=== PATIENT | female | born 1955 | race Caucasian/White ===

== ENCOUNTER → 2016-12-02 | Outpatient (CLI) | payer BC ==
--- NOTE | 2016-12-02 14:42 | MM ---
Reason for exam: additional evaluation requested from abnormal screening. Last mammogram was performed 1 year ago. History: Patient is postmenopausal and has history of breast cancer at age 44. Family history of breast cancer in mother at age 53 and breast cancer in maternal aunt at age 50. Silicone gel implant in the left breast, 2000. Breast lift of the right breast, 2000. Mastectomy of the left breast, 1999. Chemotherapy, 1999. Core biopsy of the right breast, June 01, 1998. Benign stereotactic core biopsy of the right breast, June 01, 1998. Took tamoxifen for 5 years beginning at age 44. Physical Findings: Nurse did not find any significant physical abnormalities on exam. MG Diagnostic Mammo RT w CAD CC, MLO, and ML view(s) were taken of the right breast. Prior study comparison: December 01, 2015, right breast MG 3d diag mammo w/cad RT. May 17, 2015, right breast MG 3d diag mammo w/cad RT. There are scattered fibroglandular densities. Previous mammotome biopsy within the right breast x 2. No significant new findings when compared with previous films. These results were verbally communicated with the patient and result sheet given to the patient on 12/02/16. ASSESSMENT: Benign, BI-RAD 2 RECOMMENDATION: Routine screening mammogram of both breasts in 1 year.
--- NOTE | 2016-12-02 14:43 | USB ---
Reason for exam: additional evaluation requested from abnormal screening. History: Patient is postmenopausal and has history of breast cancer at age 44. Family history of breast cancer in mother at age 53 and breast cancer in maternal aunt at age 50. Silicone gel implant in the left breast, 2000. Breast lift of the right breast, 2000. Mastectomy of the left breast, 1999. Chemotherapy, 1999. Core biopsy of the right breast, June 01, 1998. Benign stereotactic core biopsy of the right breast, June 01, 1998. Took tamoxifen for 5 years beginning at age 44. Physical Findings: Nurse did not find any significant physical abnormalities on exam. US Breast LT Left breast ultrasound is negative. These results were verbally communicated with the patient and result sheet given to the patient on 12/02/16. ASSESSMENT: Negative, BI-RAD 1 RECOMMENDATION: Routine screening mammogram of both breasts in 1 year.
== END ==
LOC: RADMAMWWP 13:18
PROVIDERS: ATTEND Family Medicine
DX: Z85.3 Personal history of malignant neoplasm of breast (principal); Z98.82 Breast implant status
CPT/HCPCS: 76641; G0206

== ENCOUNTER → 2018-01-26 | Outpatient (CLI) | payer BC ==
--- NOTE | 2018-01-28 09:11 | MM ---
Reason for exam: screening (asymptomatic). Last mammogram was performed 1 year and 2 months ago. History: Patient is postmenopausal and has history of breast cancer at age 44. Family history of breast cancer in mother at age 53 and breast cancer in maternal aunt at age 50. Silicone gel implant in the left breast, 2000. Breast lift of the right breast, 2000. Mastectomy of the left breast, 1999. Chemotherapy, 1999. Core biopsy of the right breast, June 01, 1998. Benign stereotactic core biopsy of the right breast, June 01, 1998. Took tamoxifen for 5 years beginning at age 44. Physical Findings: A clinical breast exam by your physician is recommended on an annual basis and results should be correlated with mammographic findings. MG Screen [place] Unilateral W/Cad Bilateral CC and MLO view(s) were taken. Prior study comparison: December 02, 2016, right breast MG diagnostic mammo RT w CAD. December 01, 2015, right breast MG 3d diag mammo w/cad RT. There are scattered fibroglandular densities. Previous mammotome biopsy in the right breast x 2. Post mammoplasty changes. ASSESSMENT: Negative, BI-RAD 1 RECOMMENDATION: Routine screening mammogram of the right breast in 1 year.
== END | disposition home or self-care (01) ==
LOC: RADMAMWWP 14:24
PROVIDERS: ATTEND Family Medicine
DX: Z12.31 Encounter for screening mammogram for malignant neoplasm of breast (principal)
CPT/HCPCS: 77067

== ENCOUNTER → 2019-04-01 | Outpatient (CLI) | payer BC ==
--- NOTE | 2019-04-05 10:34 | MM ---
Reason for exam: screening (asymptomatic). Last mammogram was performed 1 year and 2 months ago. History: Patient is postmenopausal and has history of breast cancer at age 44. Family history of breast cancer in mother at age 53 and breast cancer in maternal aunt at age 50. Silicone gel implant in the left breast, 2000. Breast lift of the right breast, 2000. Mastectomy of the left breast, 1999. Chemotherapy, 1999. Core biopsy of the right breast, June 01, 1998. Benign stereotactic core biopsy of the right breast, June 01, 1998. Took hormonal contraceptives for 4 years. Took tamoxifen for 5 years beginning at age 44. Physical Findings: A clinical breast exam by your physician is recommended on an annual basis and results should be correlated with mammographic findings. MG 3D Scr [place] Unilateral W/Cad CC and MLO view(s) were taken of the right breast. Prior study comparison: January 26, 2018, bilateral MG screen [place] unilateral w/cad. December 02, 2016, right breast MG diagnostic mammo RT w CAD. There are scattered fibroglandular densities. Previous mammotome biopsy in the right breast x 2. No significant changes when compared with prior studies. ASSESSMENT: Benign, BI-RAD 2 RECOMMENDATION: Routine screening mammogram of the right breast in 1 year.
== END | disposition home or self-care (01) ==
LOC: RADMAMWWP 15:08
PROVIDERS: ATTEND Family Medicine
DX: Z12.31 Encounter for screening mammogram for malignant neoplasm of breast (principal)
CPT/HCPCS: 77067

== ENCOUNTER → 2020-06-22 | Outpatient (CLI) | payer BC ==
--- NOTE | 2020-06-26 11:37 | MM ---
Reason for exam: screening (asymptomatic). Last mammogram was performed 1 year and 3 months ago. History: Patient is postmenopausal and has history of breast cancer at age 44. Family history of breast cancer in mother at age 53 and breast cancer in maternal aunt at age 50. Silicone gel implant in the left breast, 2000. Breast lift of the right breast, 2000. Mastectomy of the left breast, 1999. Chemotherapy, 1999. Core biopsy of the right breast, June 01, 1998. Benign stereotactic core biopsy of the right breast, June 01, 1998. Took hormonal contraceptives for 4 years. Took tamoxifen for 5 years beginning at age 44. Physical Findings: A clinical breast exam by your physician is recommended on an annual basis and results should be correlated with mammographic findings. MG 3D Scr [place] Unilateral W/Cad CC and MLO view(s) were taken of the right breast. Prior study comparison: April 01, 2019, bilateral MG 3d scr [place] unilateral w/cad. January 26, 2018, bilateral MG screen [place] unilateral w/cad. The breast tissue is heterogeneously dense. This may lower the sensitivity of mammography. Previous mammotome biopsy in the right breast x 2. No significant changes when compared with prior studies. ASSESSMENT: Negative, BI-RAD 1 RECOMMENDATION: Routine screening mammogram of the right breast in 1 year.
== END | disposition home or self-care (01) ==
LOC: RADMAMWWP 14:47
PROVIDERS: ATTEND Family Medicine
DX: Z12.31 Encounter for screening mammogram for malignant neoplasm of breast (principal); Z85.3 Personal history of malignant neoplasm of breast; Z98.82 Breast implant status
CPT/HCPCS: 77067

== ENCOUNTER → 2021-09-27 | Outpatient (CLI) | payer MEDICARE, BC ==
--- NOTE | 2021-10-02 12:13 | MM ---
Reason for exam: screening (asymptomatic). Last mammogram was performed 1 year and 3 months ago. History: Patient is postmenopausal and has history of breast cancer at age 44. Family history of breast cancer in mother at age 53 and breast cancer in maternal aunt at age 50. Silicone gel implant in the left breast, 2000. Breast lift of the right breast, 2000. Mastectomy of the left breast, 1999. Chemotherapy, 1999. Core biopsy of the right breast, June 01, 1998. Benign stereotactic core biopsy of the right breast, June 01, 1998. Took hormonal contraceptives for 4 years. Took tamoxifen for 5 years beginning at age 44. Physical Findings: A clinical breast exam by your physician is recommended on an annual basis and results should be correlated with mammographic findings. MG 3D Scr [place] Unilateral W/Cad CC and MLO view(s) were taken of the right breast. Prior study comparison: June 22, 2020, bilateral MG 3d scr [place] unilateral w/cad. April 01, 2019, bilateral MG 3d scr [place] unilateral w/cad. There are scattered fibroglandular densities. Previous mammotome biopsy in the right breast x 2. No significant changes when compared with prior studies. ASSESSMENT: Negative, BI-RAD 1 RECOMMENDATION: Routine screening mammogram of the right breast in 1 year.
== END | disposition home or self-care (01) ==
LOC: RADMAMWWP 13:37
PROVIDERS: ATTEND Family Medicine
DX: Z12.31 Encounter for screening mammogram for malignant neoplasm of breast (principal); Z85.3 Personal history of malignant neoplasm of breast; Z78.0 Asymptomatic menopausal state; Z80.3 Family history of malignant neoplasm of breast
CPT/HCPCS: 77067

== ENCOUNTER → 2022-09-26 | Outpatient (CLI) | payer MEDICARE, BC ==
--- NOTE | 2022-09-27 07:00 | MR ---
EXAMINATION TYPE: MR brain wo/w [facility] wo DATE OF EXAM: 09/26/2022 COMPARISON: None. HISTORY: Head and neck pain S/P fall. TECHNIQUE: Multiplanar, multisequence images of the brain and brainstem and cervical spine are all performed wit hout and with IV contrast, utilizing 8 mL intravenous Gadavist . FINDINGS: BRAIN: Diffusion weighted images demonstrate no evidence of a recent infarct or other diffusion abnormality. The ventricular system and cisternal spaces are normal in size and appearance. The brain volume is age appropriate. Occasional scattered focus of T2 hyperintensity is seen throughout the white matter bilaterally. Approximately 8-10 scattered small lesions are seen. Lesions are nonspecific in appearan ce and distribution. T2 Star weighted images show no suspicious intraparenchymal blood products. Midline structures demonstrate normal morphology. The craniocervical junction appears within normal limits. Post contrast images demonstrate no abnormal enhancement. The dural venous sinuses appear pa tent. The visualized sinuses are clear and the globes are intact. IMPRESSION: Mild to minimal nonspecific white matter changes favor product of chronic small vessel is chemic change in patient of this age. No suspicious blood product to suggest GERBER. C-SPINE: FINDINGS: Coronal images show levoconvex scoliosis centered in the upper thoracic spine. Sagittal liza ges of the cervical spine show the craniocervical junction to appear within normal limits. The cervi faith and upper thoracic spinal cord is normal in caliber and signal. There is slight grade 1 retrolist hesis of C3 on C4 and C4 on C5 along with C5 on C6. Mild disc space narrowing at C5-C6 and C6-C7 leve ls. Vertebral body heights are maintained. The bone marrow signal intensity is within normal limits. Axial images show C2-C3 level to appear within normal limits. Axial images at C3-C4 level show spondylolisthesis with right paracentral spur disc complex minimally effacing anterior thecal sac and causing mild right-sided neural foraminal narrowing. Axial images at C4-C5 level shows broad-based right paracentral disc protrusion mildly effacing anter ior thecal sac, patent bilateral neural foramina. Axial images at C5-C6 level show spondylolisthesis and posterior spur disc complex mildly effacing th e anterior thecal sac and causing mild to moderate left greater than right bilateral neural foraminal narrowing. Axial images at C6-C7 levels show spur disc complex mildly effaces the anterior thecal sac and causin g mild left-sided neural foraminal narrowing. Axial images at C7-T1 level appear within normal limits. IMPRESSION: Multilevel spondylolisthesis and degenerative change in the cervical spine as detailed ab ove.
== END | disposition home or self-care (01) ==
LOC: RADMRIMAIN 11:29
PROVIDERS: ATTEND Psychiatry & Neurology Neurology
DX: M43.12 Spondylolisthesis, cervical region (principal); M47.812 Spondylosis without myelopathy or radiculopathy, cervical region; M50.221 Other cervical disc displacement at C4-C5 level; M99.71 Connective tissue and disc stenosis of intervertebral foramina of cervical region; G93.89 Other specified disorders of brain; R51.9 Headache, unspecified
CPT/HCPCS: 70553; 72141; A9585

== ENCOUNTER → 2022-10-15 | Outpatient (CLI) | payer MEDICARE, BC ==
--- NOTE | 2022-10-16 07:20 | MM ---
Reason for Exam: Screening (asymptomatic). Last mammogram was performed 1 year(s) and 1 month(s) ago. Patient History: Menarche at age 13. First Full-Term at age 25. Postmenopausal. Patient has history of breast feeding. Breast cancer, left, age 44. Previous chemotherapy at age 44. Patient used Hormonal Contraceptives for 4 years. Tamoxifen for 5 years from age 44 until age 49. 1999, Mastectomy on the Left side. 06/01/1998, Core Biopsy on the Right side. 06/01/1998, Benign Stereotactic Core Biopsy on the right side. 1999, Chemotherapy. 2000, Implant on the left side. Maternal aunt had breast cancer, age 50. Mother had breast cancer, age 53. Prior Study Comparison: 04/01/2019 Bilateral Screening Mammogram, [facility]. 06/22/2020 Bilateral Screening Mammogram, [facility]. 09/27/2021 Bilateral Screening Mammogram, [facility]. Tissue Density: Right: There are scattered fibroglandular densities. Findings: There are 2 biopsy clips in the right breast redemonstrated. There are grouped benign-appearing punctate calcifications in the subareolar region of the right breast upper outer aspect redemonstrated. Benign-appearing right axillary lymph nodes are incidentally noted. There is no suspicious new group of microcalcifications or new suspicious mass in the right breast. Overall Assessment: Benign, BI-RAD 2 Management: Screening Mammogram of the right breast in 1 year. A clinical breast exam by your physician is recommended on an annual basis and results should be correlated with mammographic findings. Electronically signed and approved by: Wang Borges M.D.
== END | disposition home or self-care (01) ==
LOC: RADMAMWWP 16:07
PROVIDERS: ATTEND Family Medicine
DX: Z12.31 Encounter for screening mammogram for malignant neoplasm of breast (principal); Z78.0 Asymptomatic menopausal state; Z80.3 Family history of malignant neoplasm of breast; Z85.3 Personal history of malignant neoplasm of breast; Z98.82 Breast implant status; Z90.12 Acquired absence of left breast and nipple; Z92.21 Personal history of antineoplastic chemotherapy
CPT/HCPCS: 77067

== ENCOUNTER → 2023-10-17 | Outpatient (CLI) | payer MEDICARE, BC ==
--- NOTE | 2023-10-17 13:09 | MM ---
Reason for Exam: Additional evaluation requested from prior study. Last screening mammogram was performed 12 month(s) ago. Patient History: Menarche at age 13. First Full-Term at age 25. Postmenopausal. Patient has history of breast feeding. Breast cancer, left, age 44. Previous chemotherapy at age 44. Patient used Hormonal Contraceptives for 4 years. Tamoxifen for 5 years from age 44 until age 49. 1999, Mastectomy on the Left side. 06/01/1998, Core Biopsy on the Right side. 06/01/1998, Benign Stereotactic Core Biopsy on the right side. 1999, Chemotherapy. 2000, Implant on the left side. Maternal aunt had breast cancer, age 50. Mother had breast cancer, age 53. Prior Study Comparison: 06/22/2020 Bilateral Screening Mammogram, [facility]. 09/27/2021 Bilateral Screening Mammogram, [facility]. 10/15/2022 Right MG 3D scr lorenzo unilateral w/cad., [facility]. Tissue Density: Right: The breasts are heterogeneously dense, which may obscure small masses. Findings: Analyzed By CAD. There is been previous left-sided mastectomy. Benign calculations right breast. No evidence for mass or distortion. Overall Assessment: Incomplete: need additional imaging evaluation, BI-RAD 0 Management: Diagnostic Breast Ultrasound of the left breast. . Results were given to the patient verbally at the time of exam. Patient should continue monthly self-breast exams. A clinical breast exam by your physician is recommended on an annual basis. This exam should not preclude additional follow-up of suspicious palpable abnormalities. Note on Tangela scores and lifetime risk: 1. A Tangela score greater than 3% is considered moderate risk. If this is the case, consider specialist referral to assess eligibility for a risk reducing agent. 2. If overall lifetime risk for the development of breast cancer is 20% or higher, the patient may qualify for future screening with alternating mammogram and breast MRI. Electronically signed and approved by: Fuentes Devine M.D. Radiologis
--- NOTE | 2023-10-17 13:55 | USB ---
Reason for Exam: Clinical finding. Patient History: Menarche at age 13. First Full-Term at age 25. Postmenopausal. Patient has history of breast feeding. Breast cancer, left, age 44. Previous chemotherapy at age 44. Patient used Hormonal Contraceptives for 4 years. Tamoxifen for 5 years from age 44 until age 49. 1999, Mastectomy on the Left side. 06/01/1998, Core Biopsy on the Right side. 06/01/1998, Benign Stereotactic Core Biopsy on the right side. 1999, Chemotherapy. 2000, Implant on the left side. Maternal aunt had breast cancer, age 50. Mother had breast cancer, age 53. Technique: Method: Whole Breast Handheld. Doppler: Color. Patient Position: Supine. Prior Study Comparison: 12/02/2016 Left Diagnostic Ultrasound, [facility]. 06/22/2020 Bilateral Screening Mammogram, [facility]. 09/27/2021 Bilateral Screening Mammogram, [facility]. 10/15/2022 Right MG 3D scr lorenzo unilateral w/cad., [facility]. Findings: The whole breast of the left breast, the axilla of the left breast and the retroareolar of the left breast were scanned. Mastectomy changes left breast with implant noted in place unchanged from 2017. There is a thick cortex lymph nodes seen within the left axilla with cortex measuring up to 7 mm. Tissue diagnosis is recommended. Overall Assessment: Suspicious, BI-RAD 4 Management: Ultrasound Core Biopsy of the left breast. A clinical breast exam by your physician is recommended on an annual basis and results should be correlated with mammographic findings. This exam should not preclude additional follow-up of suspicious palpable abnormalities. Results were given to the patient verbally at the time of exam. Electronically signed and approved by: Fuentes Devine M.D. Radiologis
== END | disposition home or self-care (01) ==
LOC: RADMAMWWP 12:44
PROVIDERS: ATTEND Family Medicine
DX: R92.8 Other abnormal and inconclusive findings on diagnostic imaging of breast (principal); Z78.0 Asymptomatic menopausal state; Z80.3 Family history of malignant neoplasm of breast
CPT/HCPCS: 77065; 76641; G0279; 77061

== ENCOUNTER → 2023-10-30 | Day surgery (SDC) | payer MEDICARE, BC ==
--- NOTE | 2023-11-10 08:35 | USB ---
Prior Study Comparison: 09/27/2021 Bilateral Screening Mammogram, [facility]. 10/15/2022 Right MG 3D scr lorenzo unilateral w/cad., [facility]. 10/17/2023 Right MG 3D diag mammo w/cad RT, [facility]. Pathology Description: Location: axilla. Marker Left Behind. Needle Type: Bard 14g x 10cm Cores: 2 Skin Nicks: 1 Gauge: 14 The procedure of ultrasound guided core biopsy was explained to the patient. Benefits, alternatives, and risks were discussed. An informed consent was then obtained. A time out was performed. The patient was placed in supine positioning for imaging and for the procedure. The overlying skin was prepped and draped in usual sterile fashion. 3 ml 1% lidocaine into the skin followed by 8 mL 1% lidocaine/epinephrine mixture was used as anesthetic into subcutaneous tissue up to area of concern in the left axilla. The thickened left axillary node is targeted. A ame was made with surgical scalpel. Under ultrasound guidance, an 18-gauge Bard biopsy device was used to obtain 2 core samples. Following this, a butterfly biopsy clip was left in the lymph node. No postprocedure mammogram given patient's left mastectomy and axillary positioning of the biopsied lymph node. The patient tolerated the procedure well without any immediate complication. The patient was discharged home in stable condition. IMPRESSION: Successful, uncomplicated ultrasound guided core biopsy of thickened left axillary lymph node in a patient with previous left mastectomy. PATHOLOGY STATUS: Results pending. Pathology Results: Result: Malignant, Lymphoma. Pathology and radiology were reviewed. Findings are concordant. 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 Negative for metastatic malignancy. See note. Notes Sections examined show core biopsy fragments of lymph node tissue, with rare identifiable follicles. There is a notable population of somewhat mature, monotonous and atypical lymphocytes identified. No metastatic malignancy is present. A panel of immunostains performed on block A1 and evaluated with appropriate positive controls shows the atypical lymphocyte population to be immunohistochemically positive for BCL2, CD20, CD79a, CD43, and PAX5. The atypical lymphocyte population is immunohistochemically negative for the following markers: BCL-1, BCL-6, CD3, CD5, CD10, and CD23. CD23 highlights cells within preserved follicular dendritic cell meshworks. [place] and Lambda immunostains show evidence of [place] restriction among the atypical lymphocyte population. Ki-67 immunostain demonstrates a proliferative index of approximately 11-20% among the atypical lymphocyte population. 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 [employer] material from this case was also reviewed by Dr. Dilia Su, a hematopathologist at [facility], who agrees with the above diagnosis. Overall Assessment: Malignant Management: Surgical Consultation of the left breast. Electronically signed and approved by: Rosanna Barr M.D. Radiologist
== END ==
LOC: RADUSWWP 12:36
PROVIDERS: ATTEND Family Medicine
DX: Z53.8 Procedure and treatment not carried out for other reasons (principal); R92.8 Other abnormal and inconclusive findings on diagnostic imaging of breast
CPT/HCPCS: 88305; 88342; 88341; A4648

== ENCOUNTER → 2023-12-13 | Outpatient (CLI) | payer MEDICARE, BC ==
--- NOTE | 2023-12-14 06:33 | PE ---
EXAMINATION TYPE: PET CT fusion skull to thigh DATE OF EXAM: 12/13/2023 COMPARISON: NONE HISTORY: Left breast cancer 2000 with non-Hodgkin lymphoma recently diagnosed in November. TECHNIQUE: Following the intravenous administration of 12.17 mCi of F-18 FDG, whole body images are performed from the skull base to the midthigh. Images are reviewed on the computer in the coronal, a xial, and sagittal planes. Reconstructed rotating images are created on independent workstation and reviewed on the computer. A localization and attenuation correction CT is performed in conjunction with the PET scan. Blood glucose level was 90 SCAN: Initial Scan FINDINGS: Mean SUV liver: 2.62 Mean SUV mediastinum: 1.09 SKULL BASE AND NECK: No areas of suspicious abnormal hypermetabolic uptake CHEST, MEDIASTINUM, AND HILAR REGION: Surgical clips in the left axilla with left breast mastectomy a nd implant are present. No abnormal hypermetabolic uptake. No enlarged adenopathy. ABDOMEN AND PELVIS: Normal excretion. No areas of abnormal hypermetabolic uptake. No enlarged adenopa thy. OSSEOUS STRUCTURES: No areas of abnormal hypermetabolic uptake. OTHER CT: Disc space narrowing in lower lumbar levels. IMPRESSION: No areas of abnormal hypermetabolic adenopathy or uptake to suggest active lymphoma.
== END | disposition home or self-care (01) ==
LOC: RADPETMAIN 12:06
PROVIDERS: ATTEND Internal Medicine Hematology & Oncology
DX: C85.94 Non-Hodgkin lymphoma, unspecified, lymph nodes of axilla and upper limb (principal)
CPT/HCPCS: 78815; A9552

== ENCOUNTER → 2024-05-06 | Outpatient (CLI) | payer MEDICARE, BC ==
[2024-05-06 15:09] LABS: African American GFR (CKD) >90 (>60 ml/min/1.73 sqM); Blood Urea Nitrogen 12 mg/dL (7-17); Non-African American GFR(CKD) 85 (>60 ml/min/1.73 sqM)
--- NOTE | 2024-05-06 16:36 | CT ---
EXAMINATION TYPE: CT ChestAbdPelvis w con CT DLP: 897.9 mGycm, Automated exposure control for dose reduction was used. DATE OF EXAM: 05/06/2024 4:06 PM COMPARISON: 12/13/2023 PET/CT. CLINICAL INDICATION: Female, 68 years old with history of C85.94 non Hodkins lymphoma; [facility], lymphoma Technique: CT ChestAbdPelvis w con; Multiple axial images were obtained. Two-dimensional coronal and sagittal reconstructions were obtained. Contrast used:100 mL of Isovue 370 with IV Contrast, (None if empty) Oral contrast used: with Oral Contrast Findings: CHEST: LUNGS/ PLEURA: No focal consolidation, pneumothorax or pleural effusion. Left posterior Bochdalek fat-containing hernia. Medially AIRWAY: Patent and unremarkable. HEART: Size within normal limits. MEDIASTINUM: No gross evidence of adenopathy. VASCULATURE: No aortic aneurysm. MUSCULOSKELETAL: No acute osseous abnormalities. SOFT TISSUES/LYMPH NODES: Left breast implant appears intact. Surgical clips in the left axilla. LOWER NECK: No significant findings. ABDOMEN: ABDOMEN LIVER: Unremarkable GALLBLADDER AND BILE DUCTS: Gallstones layering the gallbladder lumen. PANCREAS: Unremarkable. SPLEEN: Unremarkable. ADRENAL GLANDS: Unremarkable. KIDNEYS AND URETERS: No evidence of hydronephrosis or renal calculus. The ureters are unremarkable. PELVIS BLADDER: Unremarkable REPRODUCTIVE: Unremarkable. ABDOMEN & PELVIS STOMACH AND BOWEL: No evidence of bowel obstruction. PERITONEUM/RETROPERITONEUM: No evidence of pneumoperitoneum or free fluid. VASCULATURE: No evidence of aortic aneurysm. MUSCULOSKELETAL: No acute osseous abnormalities LYMPH NODES: No gross evidence for lymphadenopathy. SOFT TISSUE/ABDOMINAL WALL: Unremarkable IMPRESSION: No evidence for lymphadenopathy or evidence for recurrence. [facility], Workstation: [id number], 05/06/2024 4:33 PM
== END | disposition home or self-care (01) ==
LOC: RADCTMAIN 13:10
PROVIDERS: ATTEND Internal Medicine Hematology & Oncology
DX: C85.94 Non-Hodgkin lymphoma, unspecified, lymph nodes of axilla and upper limb (principal)
CPT/HCPCS: 36415; 71260; 74177; 82565; 84520

== ENCOUNTER → 2024-08-05 | Outpatient (CLI) | payer MEDICARE, BC ==
[2024-08-05 10:29] LABS: African American GFR (CKD) 84 (>60 ml/min/1.73 sqM); Blood Urea Nitrogen 14 mg/dL (7-17); Non-African American GFR(CKD) 73 (>60 ml/min/1.73 sqM)
--- NOTE | 2024-08-05 13:50 | CT ---
EXAMINATION TYPE: CT ChestAbdPelvis w con DATE OF EXAM: 08/05/2024 COMPARISON: Prior whole body CT May 06, 2024 and PET/CT December 13, 2023 HISTORY: Hx lymphoma CT DLP: 965.60 mGycm. Automated Exposure Control for Dose Reduction was Utilized. CONTRAST: CT scan of the thorax, abdomen and pelvis is performed with IV Contrast, patient injected with 100 mL of Isovue 300. FINDINGS: LUNGS: The lungs show dependent opacity or atelectasis. No concerning masses. There is no pleural ef fusion or pneumothorax seen. The tracheobronchial tree is patent. MEDIASTINUM: There are no new greater than 1 cm hilar or mediastinal lymph nodes. No cardiomegaly o r pericardial effusion is seen. Stable subcentimeter low dense left thyroid nodule axial image 5. OTHER: Left breast implant redemonstrated. Multiple surgical clips in the left axilla again seen. Pos terior lymph node axial image 13 measures 10 x 8 mm is stable or slightly smaller versus priors. LIVER/GB: No significant abnormality is appreciated. PANCREAS: No significant abnormality is seen. SPLEEN: No significant abnormality is seen. ADRENALS: No significant abnormality is seen. KIDNEYS: No significant abnormality is seen. BOWEL: Oral contrast does not reach distal bowel making evaluation slightly suboptimal. No abnormal s mall or large bowel dilatation. GENITAL ORGANS: Anteverted uterus projecting left of midline redemonstrated. LYMPH NODES: No greater than 1cm abdominal or pelvic lymph nodes are appreciated. OSSEOUS STRUCTURES: Vacuum disc phenomenon with mild to moderate disc space narrowing at L4-L5 and L5 -S1 levels redemonstrated. OTHER: No significant additional abnormality is seen. IMPRESSION: No suspicious new mass or adenopathy to suggest active neoplastic recurrence. No signifi cant change from most recent priors. [facility], , 08/05/2024 1:47 PM
== END | disposition home or self-care (01) ==
LOC: RADCTMAIN 09:25
PROVIDERS: ATTEND Internal Medicine Hematology & Oncology
DX: C85.94 Non-Hodgkin lymphoma, unspecified, lymph nodes of axilla and upper limb (principal); I10 Essential (primary) hypertension; R51.9 Headache, unspecified; Z85.3 Personal history of malignant neoplasm of breast; Z80.3 Family history of malignant neoplasm of breast
CPT/HCPCS: 82565; 84520; 71260; 74177; 36415; Q9967

== ENCOUNTER → 2024-11-02 | Outpatient (CLI) | payer MEDICARE, BC ==
[2024-11-02 15:33] LABS: African American GFR (CKD) 85 (>60 ml/min/1.73 sqM); Blood Urea Nitrogen 18 mg/dL (7-17); Non-African American GFR(CKD) 74 (>60 ml/min/1.73 sqM)
--- NOTE | 2024-11-02 17:56 | CT ---
EXAMINATION TYPE: CT ChestAbdPelvis w con CT DLP: 1874 mGycm, Automated exposure control for dose reduction was used. 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 Oral contrast was administered. Two-dimensional coronal an d sagittal reconstructions were obtained. Findings: CHEST: LUNGS/ PLEURA: No pleural effusion, pneumothorax, focal consolidation. No suspicious pulmonary nodule or mass. Mild bilateral lower lobe dependent subsegmental atelectasis. AIRWAY: Patent and unremarkable.. HEART: Cardiomegaly is demonstrated. . No pericardial effusion. No significant coronary artery calcif ications. MEDIASTINUM: No gross evidence of adenopathy. VASCULATURE: No aortic aneurysm. MUSCULOSKELETAL: No acute osseous abnormalities. No aggressive osseous lesion. Mild multilevel degene rative disc disease. SOFT TISSUES/LYMPH NODES: Postsurgical changes with multiple surgical clips within the left axilla. L eft mastectomy with breast prosthesis. Decrease size of left axillary lymph node now measuring up to 8 mm short axis, previously 10 mm. LOWER NECK: Stable left thyroid lobe 1 cm hypodense nodule. Stable macrocalcification within the isth mus. ABDOMEN: ABDOMEN LIVER: Unremarkable GALLBLADDER AND BILE DUCTS: Unremarkable. PANCREAS: Unremarkable. SPLEEN: Unremarkable. ADRENAL GLANDS: Unremarkable. KIDNEYS AND URETERS: No evidence of hydronephrosis. No right renal calculi. Nonobstructive left renal lower pole 4 mm calculus. The kidneys enhance symmetrically. Right renal midportion and 1.4 cm cyst. No follow up recommended. PELVIS BLADDER: Underdistended but grossly unremarkable. REPRODUCTIVE: Unremarkable. ABDOMEN & PELVIS STOMACH AND BOWEL: Stomach and duodenum are unremarkable. Enteric contrast reaches the mid small joanne l. No focal bowel wall thickening or surrounding inflammatory changes. No evidence of bowel obstructi on. PERITONEUM: No evidence of pneumoperitoneum or free fluid. VASCULATURE: No evidence of aortic aneurysm. MUSCULOSKELETAL: No acute osseous abnormalities. No aggressive osseous lesion. Mild multilevel degene rative disc disease. LYMPH NODES: No pathologically enlarged lymph nodes identified measuring greater than 1 cm. SOFT TISSUE/ABDOMINAL WALL: Unremarkable IMPRESSION: No suspicious new mass or adenopathy to suggest active neoplastic recurrence. No significant change from most recent prior CT. [facility], , 11/02/2024 5:53 PM
== END | disposition home or self-care (01) ==
LOC: RADCTMAIN 14:49
PROVIDERS: ATTEND Internal Medicine Hematology & Oncology
DX: C85.94 Non-Hodgkin lymphoma, unspecified, lymph nodes of axilla and upper limb (principal); Z80.3 Family history of malignant neoplasm of breast; Z85.3 Personal history of malignant neoplasm of breast; I10 Essential (primary) hypertension
CPT/HCPCS: 82565; 84520; 71260; 74177; Q9967

== ENCOUNTER → 2024-12-03 | Outpatient (CLI) | payer MEDICARE, BC ==
--- NOTE | 2024-12-03 10:39 | MM ---
Reason for Exam: Screening (asymptomatic). Last mammogram was performed 1 year(s) and 1 month(s) ago. Patient History: Menarche at age 13. First Full-Term at age 25. Postmenopausal. Patient has history of breast feeding. Breast cancer, left, age 44. Other cancer, age 68. Previous chemotherapy at age 44. Patient used Hormonal Contraceptives for 4 years. Tamoxifen for 5 years from age 44 until age 49. 10/30/2023, Malignant US breast needle core LT on the left side. 1999, Mastectomy on the Left side. 06/01/1998, Core Biopsy on the Right side. 06/01/1998, Benign Stereotactic Core Biopsy on the right side. 1999, Chemotherapy. 2000, Implant on the left side. Maternal aunt had breast cancer, age 50. Mother had breast cancer, age 53. Prior Study Comparison: 09/27/2021 Bilateral Screening Mammogram, [facility]. 10/15/2022 Right MG 3D scr lorenzo unilateral w/cad., [facility]. 10/17/2023 Right MG 3D diag mammo w/cad RT, [facility]. Tissue Density: Right: There are scattered areas of fibroglandular density. Findings: Right breast: There is no suspicious group of microcalcifications or new suspicious mass. Benign-appearing calcifications right breast. Overall Assessment: Benign, BI-RAD 2 Management: Screening Mammogram of both breasts in [address] [facility] will attempt to contact patient to return for supplemental views and ultrasound if indicated. Patient should continue monthly self-breast exams. A clinical breast exam by your physician is recommended on an annual basis. This exam should not preclude additional follow-up of suspicious palpable abnormalities. Note on Tangela scores and lifetime risk: 1. A Tangela score greater than 3% is considered moderate risk. If this is the case, consider specialist referral to assess eligibility for a risk reducing agent. 2. If overall lifetime risk for the development of breast cancer is 20% or higher, the patient may qualify for future screening with alternating mammogram and breast MRI. [facility], , 12/03/2024 10:36 AM. Electronically signed and approved by: Vinny Bullock DO
== END | disposition home or self-care (01) ==
LOC: RADMAMWWP 09:07
PROVIDERS: ATTEND Family Medicine
DX: Z12.31 Encounter for screening mammogram for malignant neoplasm of breast (principal); R92.321 Mammographic fibroglandular density, right breast; R92.1 Mammographic calcification found on diagnostic imaging of breast; Z78.0 Asymptomatic menopausal state; Z92.0 Personal history of contraception; Z80.3 Family history of malignant neoplasm of breast; Z85.3 Personal history of malignant neoplasm of breast
CPT/HCPCS: 77067